=== PATIENT | male | born 1945 | race Two or more races ===

== ENCOUNTER 2021-11-09 08:45 | Inpatient (IN) | payer OTHER ==
[~2021-11-09] VITALS: Ht 172.7 cm; Wt 81.6 kg
[2021-11-09] MEDS ORDERED: LIPITOR20 MG PO (10:49)
[2021-11-09] MEDS ORDERED: DOXAZOSIN MESYLA4 MG PO (10:50)
[2021-11-09] MEDS ORDERED: ZETIA10 MG PO (10:50)
[2021-11-09] MEDS ORDERED: LEVO-T25 MCG PO (10:51)
[2021-11-09] MEDS ORDERED: HYDROCHLOROTHIA25 MG PO (10:51)
[2021-11-09] MEDS ORDERED: AZOR 5-20 MG T1 EACH PO (10:52)
[2021-11-09] MEDS ORDERED: LATANOPROST 0.7.5 ML OP (10:52)
[2021-11-09] MEDS ORDERED: D3 + K2 DOTS 11 EACH PO (10:52)
[2021-11-14] MEDS ORDERED: DICLOFENAC POTA50 MG (16:04)
[2021-11-14] MEDS ORDERED: SMOOTHLAX238 GM (16:04)
[2021-11-14] MEDS ORDERED: ZIOPTAN 0.00151 EACH (16:04)
[2021-11-14] MEDS ORDERED: AMLODIPINE-BEN1 EAC2 (16:04)
[2021-11-14] MEDS ORDERED: WAL-DRYL25 MG (16:05)
[2021-11-14] MEDS ORDERED: LIDOCAINE15 G1 (16:05)
[2021-11-14] MEDS ORDERED: PREDNISOLONE ACE5 ML (16:05)
[2021-11-14] MEDS ORDERED: BACLOFEN10 MG (16:05)
[2021-11-14] MEDS ORDERED: KETOROLAC TROMET5 M1 (16:05)
[2021-11-14] MEDS ORDERED: VITAMIN D3250 MCG (16:05)
[2021-11-14] MEDS ORDERED: SYSTANE ULTRA 010 ML (16:05)
[2021-11-14] MEDS ORDERED: ROSUVASTATIN CA20 MG (16:06)
[2021-11-16] MEDS ORDERED: PERCOCET 5-3251 EACH PO (16:54)
[2021-11-16] MEDS ORDERED: ELIQUIS2.5 MG PO (16:54)
[2021-11-16] MEDS ORDERED: DUI500 PO (16:54)
== END 2021-11-16 19:50 | DRG 467 ==
LOC: O/R 11-14 05:48 → SURG 11-14 05:48 → SURH 11-14 08:45 → SURG 11-14 17:49 → SURH 11-15 20:50
PROVIDERS: ADMIT Orthopaedic Surgery; ATTEND Orthopaedic Surgery
PROC: 0SRC0J9 Replacement of Right Knee Joint with Synthetic Substitute, Cemented, Open Approach (ICD-10-PCS; 2021-11-14)
PROC: 0SPC0JZ Removal of Synthetic Substitute from Right Knee Joint, Open Approach (ICD-10-PCS; principal; 2021-11-14 13:45)
DX: T84.032A Mechanical loosening of internal right knee prosthetic joint, initial encounter (principal); D62 Acute posthemorrhagic anemia; C91.10 Chronic lymphocytic leukemia of B-cell type not having achieved remission; T84.018A Broken internal joint prosthesis, other site, initial encounter; M17.11 Unilateral primary osteoarthritis, right knee; M85.462 Solitary bone cyst, left tibia and fibula; M25.662 Stiffness of left knee, not elsewhere classified; I10 Essential (primary) hypertension; E03.8 Other specified hypothyroidism; Z96.651 Presence of right artificial knee joint; Z20.822 Contact with and (suspected) exposure to COVID-19